=== PATIENT | female | born 1970 | race Two or more races ===

== ENCOUNTER 2017-09-16 11:15 | Outpatient (CLI) | payer OTHER ==
[~2017-09-16 11:15] MED LIST: ALLEGRA; AMOX1TAB12 PO; BENADRYL; CLARITIN10 M1; CRESTOR10 MG PO; DESPEC-DM TABL1 EACH PO; NASONEX17 GM NS; PROTONIX20 MG PO; XOPENEX0.63 MG/3 IH; ZANTAC
== END 2017-09-16 12:38 | disposition home or self-care (01) ==
LOC: RAD 11:15
DX: S10.95XA Superficial foreign body of unspecified part of neck, initial encounter (principal)

== ENCOUNTER → 2017-11-03 | Emergency (ER) | payer OTHER ==
[~2017-11-03] VITALS: Ht 157.5 cm; Wt 76.7 kg
[~2017-11-03] MED LIST changes: +KETO10TA2 PO; +ORPHENADRINE C100 MG PO
== END | disposition home or self-care (01) ==
LOC: ER 01:19 → EMR PED 01:20 → ER 01:20
DX: M54.89 Other dorsalgia (principal)

== ENCOUNTER → 2017-11-27 | Outpatient (CLI) | payer OTHER | END | disposition home or self-care (01) | LOC: PPHC 15:24 | DX: B34.9 Viral infection, unspecified (principal) ==

== ENCOUNTER 2018-02-08 11:05 | Outpatient (CLI) | payer OTHER | END 2018-02-08 11:15 | disposition home or self-care (01) | LOC: SONOGRAMA 11:05 | DX: N64.89 Other specified disorders of breast (principal); N83.292 Other ovarian cyst, left side; N83.291 Other ovarian cyst, right side ==

== ENCOUNTER 2018-02-22 11:56 | Outpatient (CLI) | payer OTHER | END 2018-02-22 13:11 | disposition home or self-care (01) | LOC: SONOGRAMA 11:56 | DX: M25.512 Pain in left shoulder (principal) ==

== ENCOUNTER 2018-05-26 14:48 | Outpatient (CLI) | payer OTHER | END 2018-05-26 15:06 | disposition home or self-care (01) | LOC: RAD 14:48 | DX: R05 Cough (principal) ==

== ENCOUNTER → 2018-09-20 | Outpatient (CLI) | payer OTHER | END | disposition home or self-care (01) | LOC: RAD 07:45 → MAMO-SONO 09:45 | DX: R07.89 Other chest pain (principal); R10.84 Generalized abdominal pain; N60.11 Diffuse cystic mastopathy of right breast; N60.12 Diffuse cystic mastopathy of left breast ==

== ENCOUNTER 2018-10-22 11:59 | Outpatient (CLI) | payer OTHER | END 2018-10-22 12:11 | disposition home or self-care (01) | LOC: MAMO-SONO 11:59 | DX: N60.11 Diffuse cystic mastopathy of right breast (principal); N60.12 Diffuse cystic mastopathy of left breast ==

== ENCOUNTER 2018-11-08 14:13 | Outpatient (CLI) | payer OTHER | END 2018-11-08 15:20 | disposition home or self-care (01) | LOC: SONOGRAMA 14:13 | DX: N60.11 Diffuse cystic mastopathy of right breast (principal); N60.12 Diffuse cystic mastopathy of left breast ==

== ENCOUNTER 2019-02-09 12:59 | Outpatient (CLI) | payer OTHER | END 2019-02-09 13:11 | disposition home or self-care (01) | LOC: RAD 12:59 | DX: M19.049 Primary osteoarthritis, unspecified hand (principal); M47.812 Spondylosis without myelopathy or radiculopathy, cervical region; M19.071 Primary osteoarthritis, right ankle and foot ==

== ENCOUNTER 2019-04-26 08:32 | Outpatient (CLI) | payer OTHER | END 2019-04-26 08:38 | disposition home or self-care (01) | LOC: TOM 08:32 | DX: N35.82 Other urethral stricture, female (principal); R76.0 Raised antibody titer; R10.84 Generalized abdominal pain ==

== ENCOUNTER 2019-07-21 08:59 | Outpatient (CLI) | payer OTHER | END 2019-07-21 13:45 | disposition home or self-care (01) | LOC: LAB 08:59 | DX: N39.0 Urinary tract infection, site not specified (principal); J11.1 Influenza due to unidentified influenza virus with other respiratory manifestations; M06.4 Inflammatory polyarthropathy ==

== ENCOUNTER → 2019-07-21 | Outpatient (CLI) | payer OTHER | END | disposition home or self-care (01) | LOC: RAD 08:52 | DX: J11.1 Influenza due to unidentified influenza virus with other respiratory manifestations (principal) ==

== ENCOUNTER 2020-01-11 08:43 | Outpatient (CLI) | payer OTHER | END 2020-01-11 09:05 | disposition home or self-care (01) | LOC: SONOGRAMA 08:43 → MAMO-SONO 08:43 | PROVIDERS: ATTEND Surgery | DX: N60.11 Diffuse cystic mastopathy of right breast (principal); N60.12 Diffuse cystic mastopathy of left breast ==

== ENCOUNTER 2020-04-03 12:38 | Outpatient (CLI) | payer OTHER | END 2020-04-03 14:02 | disposition home or self-care (01) | LOC: SONOGRAMA 12:38 → MAMO-SONO 13:45 → SONOGRAMA 14:02 | PROVIDERS: ATTEND Obstetrics & Gynecology Gynecology | DX: N60.11 Diffuse cystic mastopathy of right breast (principal); N60.12 Diffuse cystic mastopathy of left breast; N63.10 Unspecified lump in the right breast, unspecified quadrant; N63.20 Unspecified lump in the left breast, unspecified quadrant; N87.0 Mild cervical dysplasia; N92.5 Other specified irregular menstruation; N83.01 Follicular cyst of right ovary; N30.00 Acute cystitis without hematuria; D25.1 Intramural leiomyoma of uterus; E55.9 Vitamin D deficiency, unspecified; R10.2 Pelvic and perineal pain; R10.11 Right upper quadrant pain; N83.209 Unspecified ovarian cyst, unspecified side; N83.292 Other ovarian cyst, left side; N83.291 Other ovarian cyst, right side ==

== ENCOUNTER 2020-06-12 07:37 | Outpatient (CLI) | payer OTHER | END 2020-06-12 07:44 | disposition home or self-care (01) | LOC: MRI 07:37 | PROVIDERS: ATTEND Family Medicine | DX: M75.32 Calcific tendinitis of left shoulder (principal); M75.52 Bursitis of left shoulder; M75.102 Unspecified rotator cuff tear or rupture of left shoulder, not specified as traumatic | CPT/HCPCS: 73221 ==

== ENCOUNTER 2021-01-17 08:00 | Outpatient (CLI) | payer OTHER | END 2021-01-17 10:46 | disposition home or self-care (01) | LOC: MAMO-SONO 08:00 | PROVIDERS: ATTEND Obstetrics & Gynecology Gynecology | DX: N60.19 Diffuse cystic mastopathy of unspecified breast (principal); N60.12 Diffuse cystic mastopathy of left breast; N60.11 Diffuse cystic mastopathy of right breast; E03.9 Hypothyroidism, unspecified; E04.0 Nontoxic diffuse goiter; R10.2 Pelvic and perineal pain; R10.11 Right upper quadrant pain; N83.291 Other ovarian cyst, right side; M81.0 Age-related osteoporosis without current pathological fracture; E55.9 Vitamin D deficiency, unspecified; N63 Unspecified lump in breast; N87.0 Mild cervical dysplasia; N83.01 Follicular cyst of right ovary; N92.6 Irregular menstruation, unspecified; D25.1 Intramural leiomyoma of uterus; N76.2 Acute vulvitis; M85.80 Other specified disorders of bone density and structure, unspecified site ==

== ENCOUNTER 2021-02-09 09:53 | Outpatient (CLI) | payer OTHER | END 2021-02-09 10:59 | disposition home or self-care (01) | LOC: RAD 09:53 | PROVIDERS: ATTEND Internal Medicine Pulmonary Disease | DX: J01.80 Other acute sinusitis (principal); I10 Essential (primary) hypertension; R05 Cough; J34.1 Cyst and mucocele of nose and nasal sinus ==

== ENCOUNTER 2021-03-13 15:02 | Outpatient (CLI) | payer OTHER | END 2021-03-13 15:11 | disposition home or self-care (01) | LOC: MRI 15:02 | PROVIDERS: ATTEND Physical Medicine & Rehabilitation | DX: M25.561 Pain in right knee (principal); M23.91 Unspecified internal derangement of right knee | CPT/HCPCS: 73721 ==

== ENCOUNTER 2021-08-23 13:07 | Outpatient (CLI) | payer OTHER | END 2021-08-23 13:10 | disposition home or self-care (01) | LOC: SONOGRAMA 13:07 | PROVIDERS: ATTEND Obstetrics & Gynecology Gynecology | DX: N60.11 Diffuse cystic mastopathy of right breast (principal); N60.12 Diffuse cystic mastopathy of left breast; N87.0 Mild cervical dysplasia; N92.5 Other specified irregular menstruation; N83.01 Follicular cyst of right ovary; R10.12 Left upper quadrant pain; N30.00 Acute cystitis without hematuria; D25.1 Intramural leiomyoma of uterus; N76.2 Acute vulvitis; R93.429 Abnormal radiologic findings on diagnostic imaging of unspecified kidney; R31.29 Other microscopic hematuria; N20.0 Calculus of kidney; R10.2 Pelvic and perineal pain; R10.11 Right upper quadrant pain; N83.292 Other ovarian cyst, left side; N83.291 Other ovarian cyst, right side ==

== ENCOUNTER 2025-03-04 12:54 | Emergency (ER) | payer OTHER ==
[~2025-03-04] VITALS: Ht 157.5 cm; Wt 74.4 kg
[2025-03-04] MEDS ORDERED: LACTOBACILLUS ACIDOPHILUS 1 CAP CAP PO ONE (14:15)
[2025-03-04] MEDS ORDERED: 0.9 % SODIUM CHLORIDE 1,000 ML IV ONE (14:15)
[2025-03-04] MEDS ORDERED: FAMOTIDINE/PF 20 MG/2 ML VIAL IV ONE (14:15)
[2025-03-04] MEDS ORDERED: ONDANSETRON HCL 2 MG/ML VIAL IV ONE (14:15)
[2025-03-04 14:26] LABS: BASO % 0.2 % (0.1-1.2); EOS # 0.03 (0.04-0.54); EOS % 0.4 % (0.7-7.0); LYMPH # 0.63 (1.18-3.74); LYMPH % 7.7 % (19.3-53.1); MEAN PLATELET VOLUME 12.70 fl (9.4-12.4); MONO # 0.20 (0.24-0.82); MONO % 2.5 % (4.7-12.5); NEUT # 7.25 (1.56-6.13); NEUT % 89.0 % (34.0-71.1); RED CELL DISTRIBUTION WIDTH 13.4 % (11.6-14.4)
[2025-03-04] MEDS ORDERED: KETOROLAC TROMETHAMINE 30 MG VIAL IV ONE (14:30)
[2025-03-04 14:56] LABS: URINE APPEARANCE Clear; URINE BILIRRUBIN Negative (NEGATIVE); URINE BLOOD Negative; URINE COLOR Yellow; URINE GLUCOSE Negative (NEGATIVE); URINE KETONE Trace (NEGATIVE); URINE LEUKOCYTE Trace; URINE NITRATE Negative; URINE PROTEIN Trace (NEGATIVE); URINE UROBILINOGEN 1.0 E.U./dl
[2025-03-04 14:57] LABS: URINE BACTERIA 43.1 uL (0.0-1933); URINE EPITHELIAL CELLS 4.7 uL (0.0-38.8); URINE RBC 11.4 uL (0.0-20.8); URINE WBC 13.5 uL (0.0-23.2)
[2025-03-04 15:03] LABS: URINE CAST 0.29 uL (0.0-1.40)
[2025-03-04 15:14] LABS: COVID-19 AG NEGATIVE (NEGATIVE)
[2025-03-04 15:25] LABS: ALT/SGPT 35.0 U/L (12-78); AST/SGOT 19.0 U/L (15-37); BILIRUBIN TOTAL 0.65 mg/dL (0.3-1.2); BUN CREA RATIO 23.0 (7.0-25.0); CREATININE SERUM 0.48 mg/dL (0.55-1.02); GFR 135.81; GLOBULINA 3.2 G/DL (2.4-3.5); GLUCOSE FASTING 104.0 mg/dL (65-100); OSMOLALITY SERUM 281.0 MOSM/KG (275-295)
[2025-03-04] MEDS ORDERED: HYOSCYAMINE SULFATE 0.125 MG TAB.SUBL SL STA (17:41)
== END 2025-03-04 18:05 | disposition home or self-care (01) ==
LOC: ER 12:54
PROVIDERS: Emergency Medicine
DX: K52.89 Other specified noninfective gastroenteritis and colitis (principal); Z91.030 Bee allergy status; Z91.013 Allergy to seafood; Z88.1 Allergy status to other antibiotic agents; E78.49 Other hyperlipidemia; Z20.822 Contact with and (suspected) exposure to COVID-19